=== PATIENT | female | born 1935 | race Caucasian/White ===

== ENCOUNTER 2017-06-27 13:06 | Day surgery (SDC) | payer MEDICARE, BC ==
[~2017-06-27] VITALS: Ht 160 cm; Wt 58.6 kg
[2017-06-27] VITALS (12 sets, daily range): BP systolic 126–150; BP diastolic 66–98; PULSE 74–102; TEMP 97.2–99
[2017-06-27 14:55] LABS: CALCIUM 10.2 mg/dL (8.4-10.2); CREATININE, serum 1.16 mg/dL (0.52-1.25); POTASSIUM 3.9 mmol/L (3.4-5.0)
[2017-06-27] MEDS ORDERED: ENSURE PLUS 24240 ML PO (15:10)
[2017-06-27] MEDS ORDERED: ENSURE 237 ML237 ML PO (15:14)
[2017-06-27] MEDS ORDERED: ASPIRIN 81M81 MG/TA2 PO (15:17)
[2017-06-27] MEDS ORDERED: ATIVAN 0.50.5 MG/TAB PO (15:18)
[2017-06-27] MEDS ORDERED: CALCIUM 600/VIT1 CAP PO (15:19)
[2017-06-27] MEDS ORDERED: ARICEPT 5MG PO (15:19)
[2017-06-27] MEDS ORDERED: EFFEXOR XR75 MG/CAP PO (15:20)
[2017-06-27] MEDS ORDERED: VITAMIN D 50,1.25 MG PO (15:22)
[2017-06-27] MEDS ORDERED: FENTANYL 25 MCG TD (15:23)
[2017-06-27] MEDS ORDERED: FOLIC ACID800 MCG PO (15:24)
[2017-06-27] MEDS ORDERED: HCTZ 25MG TAB25 MG PO (15:25)
[2017-06-27] MEDS ORDERED: KLOR-CON 1010 MEQ PO (15:25)
[2017-06-27] MEDS ORDERED: TREXALL10 MG PO (15:27)
[2017-06-27] MEDS ORDERED: MIRALAX PA17 GM/Dose PO (15:31)
[2017-06-27] MEDS ORDERED: NORCO 325 MG-7.1 TAB PO (15:31)
[2017-06-27] MEDS ORDERED: TYLENOL 500MG500 MG PO (15:32)
[2017-06-27] MEDS ORDERED: MILK OF MA400 MG/52 PO (15:37)
[2017-06-28 02:10] VITALS: BP 144/66; PULSE 87; TEMP 98.2
[2017-06-28 05:22] VITALS: BP 148/71; PULSE 83; TEMP 98.2
[2017-06-28 09:38] VITALS: BP 160/65; PULSE 74; TEMP 97.7
== END 2017-06-28 10:00 ==
LOC: SDCO 13:06 → JCC 18:08 → SDCO 06-28 10:00
PROVIDERS: Nurse Anesthetist, Certified Registered
DX: K02.9 Dental caries, unspecified (principal); F03.90 Unspecified dementia, unspecified severity, without behavioral disturbance, psychotic disturbance, mood disturbance, and anxiety; I12.9 Hypertensive chronic kidney disease with stage 1 through stage 4 chronic kidney disease, or unspecified chronic kidney disease; N18.1 Chronic kidney disease, stage 1; M06.9 Rheumatoid arthritis, unspecified; K21.9 Gastro-esophageal reflux disease without esophagitis; Z96.642 Presence of left artificial hip joint; Z79.82 Long term (current) use of aspirin; Z82.49 Family history of ischemic heart disease and other diseases of the circulatory system; Z79.899 Other long term (current) drug therapy
CPT/HCPCS: OP; J0295; J0330; J1100; J2405; J2704; J3010; J7120